=== PATIENT | male | born 1955 | race Caucasian/White ===

== ENCOUNTER 2017-11-13 12:58 | Day surgery (SDC) | payer BC, OTHER ==
[2017-11-12 09:36] VITALS: BMI 30.8
[~2017-11-13 12:58] MED LIST: LACTATED RINGERS 1,000 ML IV SCH; LIDOCAINE 1% 20 ML VIAL (10MG/ML) FOR IV START INTRADERMA PRN
[2017-11-13 13:32] VITALS: TEMP 97.2
[2017-11-13 13:34] LABS: Glucose,Whole Blood 165 mg/dL (75-99)
[2017-11-13] MEDS ORDERED: LIDOCAINE 1% INJ 10MG/ML (20 ML MDV) ONE (15:49)
[2017-11-13] MEDS ORDERED: PROPOFOL 10 MG/ML 20 ML VIAL IV ONE (15:49)
--- NOTE | 2017-11-13 16:23 | P.PCN ---
Date of Procedure: 11/13/17 Procedure(s) Performed: Procedure: Total colonoscopy. Preoperative diagnosis: Screening for neoplasia. Postoperative diagnosis: Exam within normal limits. Preparation: HalfLytely prep. Sedation: Was provided by anesthesia. Brief clinical history: The patient is a 62-year-old male who is referred for this evaluation for screening for neoplasia age being his risk factor. He has no abdominal complaints, bleeding or anemia. No family history of colon cancer. This would be his first colonoscopy. Procedure: With the patient on his left lateral decubitus position and after informed consent and adequate sedation the perianal area was inspected and it did not show any fissures or fistulas. There were no masses felt on digital rectal examination. The Olympus CFQ 160L video colonoscope was then inserted in the rectum in the usual fashion and advanced to the cecum. Unfortunately, the preparation was less than ideal and I spent some time washing and suctioning thick fecal fluid and stool debris. The mucosa appeared healthy. No obvious polyps or tumors were seen or any obvious diverticular disease or other pathology. I retroflexed the endoscope in the rectum before the endoscope was withdrawn. The patient tolerated the procedure well. Plan: The patient was reassured. In light of his less than ideal preparation, I am recommending repeat exam in around 4-5 years before going with a 10-year schedule. He'll follow up with you as planned.
[2017-11-13 16:56] VITALS: BP 100/66; PULSE 66; RESP 18
== END 2017-11-13 17:08 | disposition home or self-care (01) ==
LOC: ORWHC2ENDO 12:58
DX: Z12.11 Encounter for screening for malignant neoplasm of colon (principal); I10 Essential (primary) hypertension; E11.9 Type 2 diabetes mellitus without complications; Z88.0 Allergy status to penicillin; Z79.82 Long term (current) use of aspirin; Z79.899 Other long term (current) drug therapy
CPT/HCPCS: 45378; J2001; J2704

== ENCOUNTER 2020-10-23 09:00 | Day surgery (SDC) | payer BC ==
[2020-10-19 16:31] VITALS: BMI 28.7
[~2020-10-23 09:00] MED LIST changes: +ACETAMINOPHEN TAB 500 MG TAB PO PRN; +DEXAMETHASONE SOD PHOSPHATE 4 MG/ML 1 ML VIAL IV ONE; +HEPARIN SODIUM,PORCINE 5,000 UNIT/ML 1 ML VIAL SQ PRN; -LIDOCAINE 1% 20 ML VIAL (10MG/ML) FOR IV START INTRADERMA PRN; +ONDANSETRON 4 MG/2 ML VIAL IVP ONE; +SCOPOLAMINE 1.5MG/72HR PATCH TRANSDERM ONE
[2020-10-23 09:52] LABS: Glucose,Whole Blood 174 mg/dL (75-99)
[2020-10-23 09:54] VITALS: RESP 16; TEMP 98.3
[2020-10-23] MEDS ORDERED: MIDAZOLAM 2 MG/2 ML VIAL IV ONE (10:11)
--- NOTE | 2020-10-23 10:22 | P.ANPRN ---
Procedure Note - Anesthesia - Nerve Block Performed Right Transversus Abdominis Single Time Out Performed: Yes (1010) Date of Procedure: 10/23/20 Procedure Start Time: : Procedure Stop Time: Location of Patient: PreOp Indication: Acute Post-Operative Pain, Analgesia, Requested by Surgeon Specifically requested for management of pain by DrTerence: Frank Zazueta Sedation Type: Sedate with meaningful contact maintained Preparation: Sterile Prep Position: Supine Catheter: None Needle Types: Pajunk Needle Gauge: 20 Ultrasound used to visualize needle placement: Yes Ultrasound used to observe medication spread: Yes Injectate: 0.5% Ropivacaine (see comment for volume) (20 mL) Blood Aspirated: No Pain Paresthesia on Injection Noted: No Resistance on Injection: Normal Image Stored and Saved: Yes Events: Uneventful and Well Tolerated
--- NOTE | 2020-10-23 11:30 | P.GSHP ---
History of Present Illness H&P Date: 10/23/20 Chief Complaint: Left Inguinal hernia This is a 65-year-old male who presents today for laparoscopic robotic-assisted repair of left inguinal hernia. Patient complains of left groin pain and has a mass. Past Medical History Past Medical History: Diabetes Mellitus, Hypertension, Musculoskeletal Disorder Additional Past Medical History / Comment(s): Lt knee pain. Rt inguinal hernia. History of Any Multi-Drug Resistant Organisms: None Reported Past Surgical History: Heart Catheterization Additional Past Surgical History / Comment(s): Colonoscopy Past Anesthesia/Blood Transfusion Reactions: No Reported Reaction Additional Past Anesthesia/Blood Transfusion Reaction / Comment(s): NO PRIOR SX HX Smoking Status: Never smoker - Past Family History Mother Family Medical History: No Reported History Medications and Allergies Home Medications Medication Instructions Recorded Confirmed Type Aspirin 81 mg PO DAILY 05/25/15 10/19/20 History amLODIPine [Norvasc] 10 mg PO DAILY 05/25/15 10/23/20 History Isosorbide Mononitrate [Isosorbide 30 mg PO DAILY 11/12/17 10/23/20 History Mononitrate ER] Losartan Potassium 100 mg PO DAILY 11/12/17 10/23/20 History sitaGLIPtin PHOS/metFORMIN HCL 1 each PO BID 11/12/17 10/23/20 History [Janumet 50-1,000 mg Tablet] Metoprolol Succinate (ER) [Toprol 25 mg PO DAILY 10/19/20 10/23/20 History Xl] Allergies Allergy/AdvReac Type Severity Reaction Status Date / Time Penicillins Allergy Unknown Verified 10/19/20 16:01 Childhood Surgical - Exam Vital Signs Temp Pulse Resp BP Pulse Ox 98.3 F 85 16 135/78 98 10/23/20 09:34 10/23/20 09:34 10/23/20 09:34 10/23/20 09:34 10/23/20 09:34 - General well developed, well nourished, no distress - Eyes PERRL - ENT normal pinna - Neck no masses - Respiratory normal expansion - Cardiovascular Rhythm: regular - Abdomen Abdomen: soft, non tender Results - Labs Abnormal Lab Results - Last 24 Hours (Table) 10/23/20 Range/Units 09:50 POC Glucose (mg/dL) 174 H (75-99) mg/dL Assessment and Plan Assessment: Left inguinal hernia. We'll perform laparoscopic robotic system repair.
[2020-10-23] MEDS ORDERED: MIDAZOLAM 2 MG/2 ML VIAL ONE (11:32)
[2020-10-23] MEDS ORDERED: NEOSTIGMINE 1 MG/ML 10 ML VIAL ONE (11:32)
[2020-10-23] MEDS ORDERED: ROPIVACAINE 5 MG/ML 30 ML VIAL ONE (11:32)
[2020-10-23] MEDS ORDERED: SUCCINYLCHOLINE CHLORIDE 100 MG/5 ML SYR IV ONE (11:32)
[2020-10-23] MEDS ORDERED: PHENYLEPHRINE-0.9% NACL SYG 1,000 MCG/10 ML SYRINGE ONE (11:32)
[2020-10-23] MEDS ORDERED: LIDOCAINE 1% INJ 10MG/ML (20 ML MDV) ONE (11:32)
[2020-10-23] MEDS ORDERED: PROPOFOL 10 MG/ML 20 ML VIAL IV ONE (11:32)
[2020-10-23] MEDS ORDERED: GLYCOPYRROLATE 0.2 MG/ML 2 ML VIAL ONE (11:32)
[2020-10-23] MEDS ORDERED: ROCURONIUM 10 MG/ML (5 ML VIAL) IV ONE (11:32)
[2020-10-23] MEDS ORDERED: fentaNYL (PF) 50 MCG/ML 2 ML AMP ONE (11:32)
[2020-10-23] MEDS ORDERED: KETAMINE 10 MG/ML 20 ML VIAL ONE (11:32)
[2020-10-23] MEDS ORDERED: BUPIVACAINE (PF) 0.25% 30 ML VIAL SQ ONE (11:45)
[2020-10-23] MEDS ORDERED: LACTATED RINGERS 1,000 ML IV ONE (12:26)
--- NOTE | 2020-10-23 12:36 | P.OP ---
Date of Procedure: 10/23/20 Preoperative Diagnosis: Right inguinal hernia Postoperative Diagnosis: Bilateral inguinal hernia Procedure(s) Performed: Laparoscopic robotic-assisted repair of bilateral inguinal hernia Anesthesia: SAGE Surgeon: Frank Zazueta Pathology: none sent Condition: stable Disposition: PACU Description of Procedure: The patient's placed on the operating table in the supine position. The patient received general anesthesia. The patient's abdomen was prepped and draped in usual sterile fashion. The skin was anesthetized 1% local Xylocaine at the incision sites. Using an 11 blade a skin incision was made at the umbilicus. The fascia was grasped with a Windsor and then the peritoneal cavity was entered with the Veress needle. Position of the Veress needle was confirmed with a positive drop test. After adequate insufflation a 5 mm trocar was placed into the peritoneal cavity. The Laparoscope was placed the peritoneal cavity. And a robotic 8 mm trocar was placed in the right lateral position and then another 8 mm robotic trochars placed in the left lateral position. The original 5 mm trocar was exchanged for a 12 mm trocar. The patient was placed in reverse Trendelenburg and then the patient was docked to the robot. Next the peritoneum over top of the right inguinal hernia was incised and then using blunt and sharp dissection and electrocautery the hernia sac was dissected free from the floor of the inguinal canal. The hernia sac was completely reduced into the peritoneal cavity. And then using the Pro manager intel mesh the hernia was repaired. The peritoneum was then sutured with 20V lock suture. Next the peritoneum over top of the left inguinal hernia was incised and then using blunt and sharp dissection and electrocautery the hernia sac was dissected free from the floor of the inguinal canal. The hernia sac was completely reduced into the peritoneal cavity. And then using the Pro manager intel mesh the hernia was repaired. The peritoneum was then sutured with 20V lock suture. The patient was then undocked the robot. The needle was withdrawn from the peritoneal cavity. The umbilical trocar site was closed with 0 Ethibond suture. The skin was closed interrupted 3-0 Monocryl suture. Dermabond dressing was applied. Patient was sent to recovery in stable condition.
[2020-10-23] MEDS ORDERED: HYDROmorphone 0.5 MG/0.5 ML SYRINGE IVP ONE (13:20)
[2020-10-23] MEDS ORDERED: KETOROLAC 15 MG/ML 1 ML VIAL IVP ONE (13:24)
[2020-10-23 15:27] VITALS: BP 136/75; PULSE 78
[2020-10-23] MEDS ORDERED: ONDANSETRON ODT 4 MG TAB PO ONE (16:08)
== END 2020-10-23 16:04 | disposition home or self-care (01) ==
LOC: OR 09:00
PROVIDERS: ATTEND Surgery
DX: K40.20 Bilateral inguinal hernia, without obstruction or gangrene, not specified as recurrent (principal); I10 Essential (primary) hypertension; E11.9 Type 2 diabetes mellitus without complications; Z88.0 Allergy status to penicillin; Z79.82 Long term (current) use of aspirin; Z79.84 Long term (current) use of oral hypoglycemic drugs; Z79.899 Other long term (current) drug therapy; Z98.890 Other specified postprocedural states
CPT/HCPCS: 49650; 64486; C1781 ×2; J2250; J1644; J1100; J2710; J0690; J2405; J2001; J3010; J2795; J1885; J2370; J0330; J2704; J1170; 64488

== ENCOUNTER → 2021-06-18 | Outpatient (CLI) | payer BC ==
[2021-06-18 11:49] LABS: HCT 40.2 % (39.0-53.0); HGB 13.5 gm/dL (13.0-17.5); MCH 29.6 pg (25.0-35.0); MCHC 33.7 g/dL (31.0-37.0); MCV 87.9 fL (80.0-100.0); RBC 4.57 m/uL (4.30-5.90); RDW 13.9 % (11.5-15.5)
[2021-06-18 12:13] LABS: INR 1.2 (<1.2); Partial Thromboplastin Time 23.5 sec (22.0-30.0); Prothrombin Time 12.7 sec (9.0-12.0)
[2021-06-18 12:29] LABS: ALT 34 U/L (4-49); AST 43 U/L (17-59); African American GFR (CKD) >90 (>60 ml/min/1.73 sqM); Albumin 3.9 g/dL (3.5-5.0); Alkaline Phosphatase 161 U/L (38-126); Anion Gap 11 mmol/L; Blood Urea Nitrogen 14 mg/dL (9-20); Calcium 9.6 mg/dL (8.4-10.2); Carbon Dioxide 21 mmol/L (22-30); Chloride 103 mmol/L (98-107); Glucose 187 mg/dL (74-99); Non-African American GFR(CKD) >90 (>60 ml/min/1.73 sqM); Sodium 135 mmol/L (137-145); Total Bilirubin 2.3 mg/dL (0.2-1.3); Total Protein 6.7 g/dL (6.3-8.2)
[2021-06-18 12:38] LABS: Appearance,Urine Cloudy (Clear); Bacteria,Urine Few /hpf; Bilirubin,Urine Negative (Negative); Blood,Urine Negative (Negative); Color,Urine Yellow; Glucose,Urine (UA) Negative (Negative); Ketones,Urine Negative (Negative); Leukocyte Esterase,Urine Large (Negative); Mucus,Urine Rare /hpf; Nitrite,Urine Positive (Negative); Protein,Urine Trace (Negative); RBC,Urine 2 /hpf (0-5); Specific Gravity,Urine 1.019 (1.001-1.035); Squamous Epithelial Cell,Urine <1 /hpf (0-4); WBC,Urine 50 /hpf (0-5)
[2021-06-18 13:29] LABS: Platelet Count 62 k/uL (150-450)
== END | disposition home or self-care (01) ==
LOC: LABPAT 09:49
PROVIDERS: ATTEND Orthopaedic Surgery Sports Medicine
DX: Z01.812 Encounter for preprocedural laboratory examination (principal)
CPT/HCPCS: 36415; 80053; 81001; 85027; 85610; 85730; 87070

== ENCOUNTER → 2022-04-26 | Outpatient (CLI) | payer BC ==
[2022-04-26 08:48] LABS: INR 1.3 (<1.2); Partial Thromboplastin Time 25.4 sec (22.0-30.0); Prothrombin Time 13.2 sec (9.0-12.0)
[2022-04-26 10:51] LABS: African American GFR (CKD) 103.5 (60.0-200.0); Albumin 4.3 g/dL (3.8-4.9); Albumin/Globulin Ratio 1.72 (1.60-3.17); Anion Gap 14.7 mmol/L (10.00-18.00); BUN/Creat Ratio 15.11 Ratio (12.00-20.00); Blood Urea Nitrogen 13.6 mg/dL (9.0-27.0); Calcium 9.9 mg/dL (8.7-10.3); Carbon Dioxide 21.3 mmol/L (20.0-27.5); Globulin 2.5 g/dL (1.6-3.3); Non-African American GFR(CKD) 89.3 (60.0-200.0); Potassium 4.2 mmol/L (3.5-5.5); Total Bilirubin 0.9 mg/dL (0.30-1.20); Total Protein 6.8 g/dL (6.2-8.2)
[2022-04-26 11:35] LABS: HCT 38.5 % (39.6-50.0); HGB 12.8 g/dL (13.0-17.0); MCHC 33.2 g/dL (32.0-37.0); MCV 87.3 fL (80.0-97.0); Mean Platelet Volume 11.5 fL (9.5-12.2); NRBC Per 100 WBC 0 /100 WBCS (0.0-0.0); Platelet Count 63 X 10*3/uL (140-440); RBC 4.41 X 10*6/uL (4.40-5.60); RDW 15.2 % (11.5-14.5); WBC 2.92 X 10*3/uL (4.50-10.00)
[2022-04-26 17:02] LABS: Appearance,Urine Clear (Clear); Bilirubin,Urine Negative (Negative); Blood,Urine Trace (Negative); Color,Urine Yellow (Yellow); Ketones,Urine Negative (Negative); Nitrite,Urine Positive (Negative); Specific Gravity,Urine 1.014 (1.001-1.030)
[2022-04-26 17:08] LABS: Bacteria,Urine 3+ /HPF (None Seen)
== END | disposition home or self-care (01) ==
LOC: LABWHC1 06:59
PROVIDERS: ATTEND Orthopaedic Surgery Sports Medicine
DX: Z01.818 Encounter for other preprocedural examination (principal)
CPT/HCPCS: 36415; 80053; 81001; 85027; 85610; 85730; 87070

== ENCOUNTER → 2022-05-14 | Outpatient (CLI) | payer BC | END | disposition home or self-care (01) | LOC: LABPAT 07:35 | PROVIDERS: ATTEND Orthopaedic Surgery Sports Medicine | DX: Z53.9 Procedure and treatment not carried out, unspecified reason (principal) ==

== ENCOUNTER 2022-05-16 06:24 | Day surgery (SDC) | payer BC ==
[~2022-05-16 06:24] MED LIST changes: +GABAPENTIN 300 MG CAP PO PRN; -HEPARIN SODIUM,PORCINE 5,000 UNIT/ML 1 ML VIAL SQ PRN; -LACTATED RINGERS 1,000 ML IV SCH; +LIDOCAINE 1% (10MG/ML) FOR IV START INTRADERMA PRN; +MELOXICAM 7.5 MG TAB PO PRN; +MIDAZOLAM 2 MG/2 ML VIAL IV PRN; +ONDANSETRON 4 MG/2 ML VIAL IVP PRN; -SCOPOLAMINE 1.5MG/72HR PATCH TRANSDERM ONE; +TRANEXAMIC ACID IN NACL,ISO-OS 1,000 MG in SALINE 1 100ML.BAG IVPB PRN
[2022-05-16 07:22] LABS: Glucose,Whole Blood 124 mg/dL (70-110)
[2022-05-16] MEDS ORDERED: LACTATED RINGERS 1,000 ML IV ONE ×2 (07:29→09:41)
[2022-05-16 07:34] LABS: Basophils % (A) 1 %; Eosinophils # (A) 0.1 k/uL (0-0.7); Eosinophils % (A) 2 %; HGB 12.6 gm/dL (13.0-17.5); Lymphocytes # (A) 0.5 k/uL (1.0-4.8); Lymphocytes % (A) 15 %; MCH 30.2 pg (25.0-35.0); MCV 88.8 fL (80.0-100.0); Mean Platelet Volume 8.8; Monocytes # (A) 0.2 k/uL (0-1.0); Monocytes % (A) 5 %; Neutrophils # (A) 2.3 k/uL (1.3-7.7); Neutrophils % (A) 75 %; RBC 4.16 m/uL (4.30-5.90); RDW 15.4 % (11.5-15.5); WBC 3.1 k/uL (3.8-10.6)
[2022-05-16] MEDS ORDERED: KETAMINE 10 MG/ML 20 ML VIAL ONE (07:58)
[2022-05-16] MEDS ORDERED: ePHEDrine 50 MG/ML 1 ML VIAL ONE (07:58)
[2022-05-16] MEDS ORDERED: HYDROmorphone (PF) 1 MG/ML ONE (07:58)
[2022-05-16] MEDS ORDERED: LIDOCAINE 2% INJ 20 MG/ML (2 ML VIAL) ONE (07:58)
[2022-05-16] MEDS ORDERED: SUCCINYLCHOLINE CHLORIDE 200 MG/10 ML VIAL IV ONE (07:58)
[2022-05-16] MEDS ORDERED: fentaNYL (PF) 50 MCG/ML 2 ML AMP ONE (07:58)
[2022-05-16] MEDS ORDERED: ACETAMINOPHEN IV (For NPO) 1,000 MG/100 ML VIAL ONE (07:58)
[2022-05-16] MEDS ORDERED: TRANEXAMIC ACID IN NACL,ISO-OS 1,000 MG/100 ML BAG ONE (07:58)
[2022-05-16] MEDS ORDERED: PROPOFOL 10 MG/ML 20 ML VIAL IV ONE (07:58)
[2022-05-16] MEDS ORDERED: MIDAZOLAM 2 MG/2 ML VIAL ONE (07:58)
[2022-05-16] MEDS ORDERED: ROPIVACAINE 5 MG/ML 30 ML VIAL MISCELLANE ONE (08:03)
[2022-05-16 08:04] LABS: RBC Morphology Normal
[2022-05-16 08:05] LABS: Platelet Count 61 k/uL (150-450)
[2022-05-16] MEDS ORDERED: ceFAZolin 3,000 MG in SODIUM CHLORIDE 0.9% IRRIGATIO 3,000 ML IRRIGATION ONE (08:34)
[2022-05-16] MEDS ORDERED: ONDANSETRON 4 MG/2 ML VIAL IVP PRN (10:06)
[2022-05-16] MEDS ORDERED: NA PHOS,M-B/NA PHOS,DI-BA 133 ML ENEMA RECTAL PRN (10:06)
[2022-05-16] MEDS ORDERED: bisacodyL 10 MG SUPP RECTAL PRN (10:06)
[2022-05-16] MEDS ORDERED: hydrOXYzine pamoate 25 MG CAP PO PRN (10:06)
[2022-05-16] MEDS ORDERED: HYDROmorphone 0.5 MG/0.5 ML SYRINGE IVP PRN ×3 (10:06)
[2022-05-16] MEDS ORDERED: MAGNESIUM HYDROXIDE 2,400 MG/10 ML CUP PO PRN (10:06)
[2022-05-16] MEDS ORDERED: NALOXONE 0.4 MG/ML 1 ML VIAL IV PRN (10:06)
[2022-05-16] MEDS ORDERED: TEMAZEPAM 15 MG CAP PO PRN (10:06)
[2022-05-16] MEDS ORDERED: HYDROcodone/APAP 5-325MG 1 EACH TAB PO PRN (10:06)
[2022-05-16] MEDS: HYDROmorphone 0.5 MG/0.5 ML SYRINGE IVP PRN ×2 (10:31→10:46)
[2022-05-16] MEDS ORDERED: diphenhydrAMINE 50 MG/ML 1 ML VIAL IVP ONE (11:00)
--- NOTE | 2022-05-16 11:30 | OP ---
OPERATIVE REPORT PREOPERATIVE DIAGNOSIS: Left knee osteoarthrosis. POSTOPERATIVE DIAGNOSIS: Left knee osteoarthrosis. PROCEDURE PERFORMED: Left total knee arthroplasty. ANESTHESIA: General endotracheal. ESTIMATED BLOOD LOSS: 100 mL. TOURNIQUET TIME: 54 minutes at 250 mmHg. COMPLICATIONS: None apparent. DRAINS: None. DISPOSITION: Postanesthesia care unit. INDICATIONS FOR PROCEDURE: Steve is a very pleasant 66-year-old male with longstanding history of left knee pain. History and physical examination are consistent with advanced left knee osteoarthrosis. He has been through significant nonoperative management up to this point. Further treatment options were discussed, and he decided to go forward with left total knee arthroplasty. The risks of procedure were discussed with him in detail. These risks include, but are not limited to risk of infection, nerve damage, bleeding, pain, and a small risk of deep vein thrombosis which could lead to fatal pulmonary embolism. There is also risk of loosening of the implant, which could require revision operation. 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 He has been worked up extensively by Hematology preoperatively. We did take a preoperative platelet level, it was 61,000. This was within the range that Hematology felt it was safe to proceed with this procedure. We did have platelets on reserve in case needed during the surgery. Steve understands the increased risk of bleeding with regard to his underlying liver disorder. All of his questions were answered to his satisfaction. An appropriate informed consent was obtained. DESCRIPTION OF PROCEDURE: The patient was identified in the preoperative holding area. Surgical site was marked by both the patient and myself. He was given 2 g of Ancef IV for prophylactic purposes. He was then transported to the operative suite and placed supine on the operating room table. A general anesthetic was then administered and dosed per the Anesthesia Department without apparent complication. Examination under anesthesia was then performed. He was 2 to 3 degrees shy of full extension. He had 100 degrees of flexion, and the medial collateral ligament, lateral collateral ligament, and posterior cruciate ligaments were stable. A tourniquet was then placed high on the left upper thigh and well padded in preparation for surgery. The patient's left lower extremity was then prepped and draped in usual sterile fashion. Standard surgical pause was undertaken to ensure that we were operating the correct site and that appropriate preoperative antibiotics had been given. All staff in the room were in agreement, and we proceeded. The outlines of the patella were marked with a surgical pen. A planned 12 cm vertical incision centered over the patella was marked with a surgical pen. The leg was then exsanguinated with an Esmarch dressing. The knee was then flexed, and the tourniquet was inflated to 250 mmHg. The total tourniquet time for the procedure was 54 minutes. The incision was then made with a 10-blade scalpel. Dissection was carried down sharply overlying the fascia. Great care was taken to minimize the skin flaps. The knee was then exposed using a standard medial parapatellar approach. A small cuff of quadriceps tendon was then left for suturing. He was in a bit of varus preoperatively. A standard medial release was then made. The superficial medial collateral ligament was dissected off the bone around to the posterior aspect of the proximal tibia. The medial meniscus was then excised as well. The lateral meniscus was also released anteriorly. The leg was then externally rotated. The patella was everted. The knee was flexed. The retractors were then placed to protect the collateral ligaments. I then proceeded to remove the infrapatellar fat pad. This was excised sharply tangentially with fibers of the patellar tendon. I then proceeded to remove the peripheral osteophytes. This was done with a rongeur. I then proceeded with the distal femoral resection. He did have near full extension. A planned 9 mm resection was then done. The femoral canal was then entered in the midline of the femur approximately 10 mm anterior to the origin of the posterior cruciate ligament. The ranjit was then advanced down to the center of the femur and placed intramedullary. Based on the preoperative radiographs, the angle between the anatomic and mechanical axis of the femur was approximately 4 to 5 degrees. The valgus angle of the distal femoral cutting guide was then set at 4 degrees for the left knee. The distal femoral cutting guide was then advanced over the intramedullary ranjit. This was seated firmly against the femur. Then, as mentioned, I planned to take 9 mm off the distal femur. The cutting block was then secured onto the femur with pins. The jig was then removed. The distal femoral cuts were made through the slot of the block. The pins were then removed. The distal femoral cutting block was removed. The accuracy of the distal femoral cuts was checked with 2 flat bars. I then proceeded with femoral sizing. Posterior referencing sizing guide was held firmly against the resected distal surface of the femur. The posterior condyles were resting on the posterior plane of the guide. The sizing stylus was then placed onto the anterior femur. The size was measured as a size 8. I then assessed for femoral rotation. I planned for 3 degrees of external rotation. The 3 degrees of external rotation was placed onto the jig. These holes were then marked. I then confirmed the rotation by 3 separate methods. This was done using the epicondylar axis as well as Richmond's line and posterior referencing. It was deemed that the external rotation was proper. I then went forward and placed the femoral cutting block. This was placed over the previously-placed pin holes. The Luke wing was then placed on the anterior slots to ensure that we would not notch the anterior femur with the anterior femoral cut. I then proceeded with the anterior femoral cut. This was flush with the anterior cortex of the femur. Posterior cuts were then made followed by the anterior chamfer cut and then the posterior chamfer cut. The cutting block was then removed. Throughout the resection, the collateral ligaments were protected with retractors. I then placed a trial size 8 femur. It fit very nice medial and lateral and fit flush with the distal end of the femur. The drill holes were then made. I then proceeded with the tibial cut. I planned for a cruciate-retaining knee. The guide was placed and set for varus and valgus and for slope. The height was set for approximately 2 mm resection from the medial tibial plateau, which was the lower side. I was happy with the alignment and the amount of resection. The cutting block was then pinned to the proximal tibia. The alignment ranjit was removed, and the proximal tibia was resected with the reciprocating saw. Again, this was done with retractors protecting the collateral ligaments as well as the posterior cruciate ligament. I then proceeded to evaluate the flexion and extension gaps. A 10 mm block was then placed. The flexion and extension gaps were equal. I then proceeded with resection of the posterior osteophytes. He had very minimal posterior osteophytes. This was done using a curved osteotome. This resected the posterior osteophytes, and posterior capsular stripping was done off the posterior aspect of the femur at this time. The osteophytes were then removed. I then proceeded with resection of the patella. The thickness of the patella was measured using the caliper. The thickness was 24 mm. The thickness of the anticipated patellar dome was then taken into account. The resection was then performed and confirmed to be equal in 4 quadrants using a caliper. Approximately 14 mm of bone remained after resection. A 32 x 8.5 mm standard patellar trial was then placed. The holes were drilled, and the trial was then placed. I then proceeded with sizing the tibial plate. A size F tibial plate fit very nicely. I then placed the trial femur, the tibial tray, and the patellar button. A 10 mm trial tibial insert was also placed. The components fit very nicely. He had full extension and flexion. The extension and flexion gaps were equal and stable to both varus and valgus stress. The patella tracked appropriately. Tibial tray rotation was then marked with a Bovie. This was externally rotated properly. I then proceeded with tibial preparation. I first drilled the femoral holes and removed the femoral component. The tibial tray was then set for proper external rotation as well as medial and lateral placement onto the tibia. It was then pinned into place. I then proceeded with punching the keel. I then decided to proceed with cementing of all of our components. The knee was thoroughly irrigated with sterile saline solution via pulsed lavage. The lateral genicular artery was identified and cauterized. All blood was removed from the bone of the tibia, femur, and patella with pulsed lavage. I then proceeded with cementing. Two packs of antibiotic bone cement prepared on the back table by the surgical orderly. I then proceeded with cementing of the tibia first. The cement was impacted in the keel as well as deeply seated into the bone. A second coat of cement was then placed. The tibia was then impacted into place. Excess cement was removed with Sunbury's and Joker's. I then proceeded with cementing of the femoral component. The femoral component was also cemented using standard technique. Excess cement was removed. A 10 mm trial insert was then placed into the knee. It was brought into full extension with a constant axial load placed until the cement had hardened. The patellar component was then cemented. This was held firmly with a compressive device until the cement had dried. When the cement had dried, the knee was taken out of extension. All excess cement was removed from around the prosthesis. I then trialed the knee with a 10 mm insert. The flexion and extension gaps were appropriate. I then trialed with a 12 mm insert. The flexion and extension gaps felt much better. The knee was stable with a 12 mm insert. It came into full extension. I decided to go forward with a 12 mm Medial Congruent cross-linked cruciate-retaining tibial insert. Polyethylene was then placed onto the tibial tray and locked into place. The knee was then reduced. The knee was again further irrigated with sterile saline solution with antibiotic added. The tourniquet was then deflated. Total tourniquet time for the procedure was 54 minutes at 250 mmHg. Final components were Torey Persona size 8 cruciate-retaining femoral component, a size F tibial tray, a 12 mm Medial Congruent cruciate-retaining polyethylene insert, and a 32 x 8.5 mm patella. I then proceeded with closure. Again, the knee was thoroughly irrigated. The quadriceps tendon and the medial retinaculum were reapproximated with #2 Ethibond suture. The extensor mechanism was then closed with a running #2 Quill suture. Subcutaneous tissues were closed with 2-0 Vicryl interrupted suture. The skin was closed with a running 3-0 Quill suture. Dermabond was applied to the incision. Sterile compressive dressing was then applied. All sponge and needle counts were deemed correct prior to closure. The patient tolerated the procedure without apparent complication. He was transferred to recovery room in stable condition. MMODL / IJN: [id number] /
[2022-05-16 12:03] LABS: Glucose,Whole Blood 206 mg/dL (70-110)
--- NOTE | 2022-05-16 12:05 | XR ---
EXAMINATION TYPE: TEMPORARY DATE OF EXAM: 05/16/2022 CLINICAL HISTORY: Left knee pain and arthritis status post total knee replacement. TECHNIQUE: Portable AP and crosstable lateral views of the left knee are obtained immediately postop eratively. COMPARISON: None FINDINGS: Metallic hardware from total left knee arthroplasty is seen and appears satisfactory in al ignment and position. There is evidence of recent surgery with diffuse subcutaneous gas and soft ti ssue swelling noted. IMPRESSION: METALLIC HARDWARE FROM TOTAL LEFT KNEE ARTHROPLASTY IS SATISFACTORY IN ALIGNMENT.
[2022-05-16] MEDS: LACTATED RINGERS 1,000 ML IV SCH ×3 (12:30→21:50)
[2022-05-16 17:07] LABS: Glucose,Whole Blood 235 mg/dL (70-110)
[2022-05-16] MEDS ORDERED: SENNOSIDES-DOCUSATE SODIUM 1 EACH TAB PO SCH (21:00)
[2022-05-16 21:10] LABS: Glucose,Whole Blood 253 mg/dL (70-110)
[2022-05-16] MEDS: HYDROcodone/APAP 7.5-325MG 1 EACH TAB PO PRN (21:49)
[2022-05-17] MEDS: LACTATED RINGERS 1,000 ML IV SCH ×2 (06:12→12:32)
[2022-05-17 06:58] LABS: Glucose,Whole Blood 150 mg/dL (70-110)
--- NOTE | 2022-05-17 07:47 | P.CONS ---
History of Present Illness - Reason for Consult Consult date: 05/17/22 Medical management Requesting physician: Behzad Merchant - Chief Complaint Knee arthroplasty - History of Present Illness This is a history and physical on a 66-year-old white male with history of alcohol use who comes in with knee arthroplasty. He is seen postop day #1. Underlying history of hypertension and diabetes. Pain is well controlled. Inhalation we'll begin today. No fever or chills. No significant nausea, vomiting or diarrhea Review of Systems Constitutional: Denies chills, Denies fever Eyes: denies blurred vision, denies pain Ears, nose, mouth and throat: Denies headache, Denies sore throat Cardiovascular: Denies chest pain, Denies shortness of breath Respiratory: Denies cough Gastrointestinal: Denies abdominal pain, Denies diarrhea, Denies nausea, Denies vomiting Past Medical History Past Medical History: Diabetes Mellitus, Hypertension, Musculoskeletal Disorder Additional Past Medical History / Comment(s): Lt knee pain. Rt inguinal hernia. History of Any Multi-Drug Resistant Organisms: None Reported Past Surgical History: Heart Catheterization, Hernia Repair Additional Past Surgical History / Comment(s): Colonoscopy Past Anesthesia/Blood Transfusion Reactions: No Reported Reaction Additional Past Anesthesia/Blood Transfusion Reaction / Comm: NO PRIOR SX HX Past Psychological History: No Psychological Hx Reported Smoking Status: Never smoker Past Alcohol Use History: Heavy Additional Past Alcohol Use History / Comment(s): pt has been sober of etoh for 10 months. used to drink more than 14 drinks per week. Past Drug Use History: None Reported - Past Family History Mother Family Medical History: No Reported History Medications and Allergies Home Medications Medication Instructions Recorded Confirmed Type Aspirin 81 mg PO DAILY 05/25/15 05/16/22 History amLODIPine [Norvasc] 10 mg PO DAILY 05/25/15 05/16/22 History Isosorbide Mononitrate [Isosorbide 30 mg PO DAILY 11/12/17 05/16/22 History Mononitrate ER] Losartan Potassium 100 mg PO DAILY 11/12/17 05/16/22 History sitaGLIPtin PHOS/metFORMIN HCL 1 each PO BID 11/12/17 05/16/22 History [Janumet 50-1,000 mg Tablet] Metoprolol Succinate (ER) [Toprol 25 mg PO DAILY 10/19/20 05/16/22 History Xl] Zolpidem Tartrate [Ambien] 5 mg PO HS PRN 05/09/22 05/16/22 History Aspirin [Adult Low Dose Aspirin EC] 81 mg PO DAILY #1 tab 05/16/22 Rx HYDROcodone/APAP 7.5-325MG [[place] 1 - 2 tab PO Q6HR PRN #32 tab 05/16/22 Rx 7.5-325] Ondansetron Odt [Zofran Odt] 4 mg PO Q8HR PRN #14 tab 05/16/22 Rx Sennosides-Docusate Sodium 1 tab PO BID #60 tablet 05/16/22 Rx [Senokot-S] Allergies Allergy/AdvReac Type Severity Reaction Status Date / Time Penicillins Allergy Unknown Verified 05/16/22 06:48 Childhood Physical Exam Vitals: Vital Signs Temp Pulse Resp BP Pulse Ox 05/17/22 01:06 98.3 F 71 18 120/54 98 05/16/22 21:06 98.4 F 73 16 117/61 99 05/16/22 14:03 73 121/68 97 05/16/22 13:48 74 119/67 97 05/16/22 13:33 73 123/69 96 05/16/22 13:18 74 124/69 96 05/16/22 13:06 70 17 05/16/22 13:03 75 119/68 97 05/16/22 12:48 81 127/68 97 05/16/22 12:38 97.8 F 80 17 126/70 97 05/16/22 12:33 79 126/70 05/16/22 12:18 83 140/76 05/16/22 12:03 97.8 F 79 120/65 97 05/16/22 11:18 76 16 122/68 97 05/16/22 11:03 75 16 129/70 98 05/16/22 10:48 74 16 123/71 97 05/16/22 10:33 76 16 128/64 97 05/16/22 10:18 78 16 138/71 100 05/16/22 10:03 97.3 F L 74 16 132/65 99 Intake and Output 05/16/22 05/17/22 05/17/22 22:59 06:59 14:59 Intake Total 530 Output Total 9250 9781 Balance -1275 -945 Intake: Intake, IV Titration 50 Amount Tranexamic Acid in NaCl, 50 Iso-Os 1,000 mg In Saline 1 100ml.bag @ 200 mls/hr IVPB ONCE PRN Rx#: [id number] Oral 480 Output: Urine 1275 1475 Other: Voiding Method Urinal # Voids 1 - Constitutional General appearance: no acute distress - EENT Eyes: EOMI - Neck Neck: no lymphadenopathy - Respiratory Respiratory: bilateral: CTA - Cardiovascular Rhythm: regular Heart sounds: normal: S1 Abnormal Heart Sounds: no S3 Gallop - Gastrointestinal General gastrointestinal: soft, no tenderness - Integumentary Integumentary: no cellulitis Results CBC & Chem 7: 05/16/22 07:20 Labs: Abnormal Lab Results - Last 24 Hours (Table) 05/16/22 05/16/22 05/16/22 Range/Units 07:20 12:01 17:06 Plt Count 61 L (150-450) k/uL Lymphocytes # 0.5 L (1.0-4.8) k/uL POC Glucose (mg/dL) 206 H 235 H (70-110) mg/dL 05/16/22 05/17/22 Range/Units 21:07 06:57 Plt Count (150-450) k/uL Lymphocytes # (1.0-4.8) k/uL POC Glucose (mg/dL) 253 H 150 H (70-110) mg/dL Assessment and Plan (1) Knee arthropathy Current Visit: Yes Status: Acute Code(s): M17.10 - UNILATERAL PRIMARY OSTEOARTHRITIS, UNSPECIFIED KNEE SNOMED Code(s): 653038492 (2) Diabetes Current Visit: Yes Status: Acute Code(s): E11.9 - TYPE 2 DIABETES MELLITUS WITHOUT COMPLICATIONS SNOMED Code(s): 77053326 (3) Hypertension Current Visit: Yes Status: Acute Code(s): I10 - ESSENTIAL (PRIMARY) HYPERTENSION SNOMED Code(s): 65577861 (4) Alcohol abuse Current Visit: Yes Status: Acute Code(s): F10.10 - ALCOHOL ABUSE, UNCOMPLICATED SNOMED Code(s): 21681404 Plan: Restart home medications. Place on sliding scale as needed. The patient is actually doing quite well postop. I suspect he will be discharged in next 24 hours. Continue follow-up from medical management. GI and DVT prophylaxis
[2022-05-17] MEDS ORDERED: DEXTROSE 50% SYRINGE 50 ML IVP PRN ×2 (07:48)
[2022-05-17 08:34] VITALS: RESP 17
[2022-05-17] MEDS ORDERED: LOSARTAN 50 MG TAB PO SCH (09:00)
[2022-05-17] MEDS ORDERED: amLODIPine 10 MG TAB PO SCH (09:00)
[2022-05-17] MEDS ORDERED: ASPIRIN 81 MG PO SCH (09:00)
[2022-05-17] MEDS ORDERED: METOPROLOL SUCCINATE (ER) 25 MG TAB.ER.24H PO SCH (09:00)
[2022-05-17] MEDS ORDERED: metFORMIN 500 MG TAB PO SCH (09:00)
[2022-05-17] MEDS ORDERED: LINAGLIPTIN 5 MG TABLET PO SCH (09:00)
[2022-05-17] MEDS ORDERED: ISOSORBIDE MONONITRATE ER 30 MG TAB.ER.24H PO SCH (09:00)
[2022-05-17] MEDS: HYDROcodone/APAP 7.5-325MG 1 EACH TAB PO PRN ×2 (09:09→15:25)
[2022-05-17 09:33] LABS: Basophils # (A) 0.01 X 10*3/uL (0.00-0.10); Basophils % (A) 0.2 %; Eosinophils # (A) 0.03 X 10*3/uL (0.04-0.35); Eosinophils % (A) 0.6 %; HCT 30.7 % (39.6-50.0); HGB 10.4 g/dL (13.0-17.0); Immature Grans, Automated 0.6 %; Immature Platelet Fraction 4.5 % (1.1-6.1); Lymphocytes # (A) 0.58 X 10*3/uL (0.90-5.00); Lymphocytes % (A) 11.3 %; MCH 29.2 pg (27.0-32.0); MCHC 33.9 g/dL (32.0-37.0); MCV 86.2 fL (80.0-97.0); Mean Platelet Volume 10.6 fL (9.5-12.2); Monocytes # (A) 0.31 X 10*3/uL (0.20-1.00); NRBC Per 100 WBC 0 /100 WBCS (0.0-0.0); Neutrophils # (A) 4.19 X 10*3/uL (1.80-7.70); Neutrophils % (A) 81.3 %; Platelet Count 55 X 10*3/uL (140-440); RBC 3.56 X 10*6/uL (4.40-5.60); RDW 14.8 % (11.5-14.5); WBC 5.15 X 10*3/uL (4.50-10.00)
[2022-05-17 12:01] LABS: Glucose,Whole Blood 203 mg/dL (70-110)
--- NOTE | 2022-05-17 13:58 | P.DS ---
Providers Expected date of discharge: 05/17/22 Attending physician: Jamal Burrell Consults: 05/16/22 10:06 Consult Physician Routine Consulting Provider: Rudy Lang Consult Reason/Comments: Medical management Do you want consulting provider notified?: Yes Primary care physician: Rudy Lang [facility] Course: This patient is a 66- year old male who has been followed in the office by Dr. Burrell for left knee osteoarthritis. After discussion, patient elected to undergo a left total knee arthroplasty. Patient was evaluated by Dr. Lang, Dr. Schreiber, Dr. Montanez pre-operatively and cleared for surgery. Patient underwent a left total knee arthroplasty on 05/16/[address] Burrell. Vital signs and labs are stable on post-operative day #1. Patient is examined bedside this morning. He is currently up to the bedside chair. He states the pain in his left knee is manageable. He is comfortable returning home today. He has passed physical therapy to return home. He denies chest pain, shortness of breath, nausea, vomiting. On examination, patient is sitting up in the bedside chair. He is alert and orientated x3. On inspection of the left knee, there is a clean, dry surgical dressing intact with no bleeding or drainage to the dressing. Motor and sensory function intact of the left lower extremity. Dorsalis pedis pulse easily palpable. Calf non-tender. Patient is discharged home with home health care today, pending medical clearance. Please see med rec for accurate list of discharge medications. Patient is instructed to follow-up with Dr. Burrell in the office in ten days. Plan - Discharge Summary Discharge Rx Participant: No New Discharge Prescriptions: New HYDROcodone/APAP 7.5-325MG [[place] 7.5-325] 1 - 2 tab PO Q6HR PRN #32 tab PRN Reason: Pain Sennosides-Docusate Sodium [Senokot-S] 1 tab PO BID #60 tablet Aspirin [Adult Low Dose Aspirin EC] 81 mg PO DAILY #1 tab Ondansetron Odt [Zofran Odt] 4 mg PO Q8HR PRN #14 tab PRN Reason: Nausea Continue amLODIPine [Norvasc] 10 mg PO DAILY Aspirin 81 mg PO DAILY sitaGLIPtin PHOS/metFORMIN HCL [Janumet 50-1,000 mg Tablet] 1 each PO BID Isosorbide Mononitrate [Isosorbide Mononitrate ER] 30 mg PO DAILY Losartan Potassium 100 mg PO DAILY Metoprolol Succinate (ER) [Toprol XL] 25 mg PO DAILY Zolpidem Tartrate [Ambien] 5 mg PO HS PRN PRN Reason: Insomnia Discharge Medication List Aspirin 81 mg PO DAILY 05/25/15 [History] amLODIPine [Norvasc] 10 mg PO DAILY 05/25/15 [History] Isosorbide Mononitrate [Isosorbide Mononitrate ER] 30 mg PO DAILY 11/12/17 [History] Losartan Potassium 100 mg PO DAILY 11/12/17 [History] sitaGLIPtin PHOS/metFORMIN HCL [[place] 50-1,000 mg Tablet] 1 each PO BID 11/12/17 [History] Metoprolol Succinate (ER) [Toprol XL] 25 mg PO DAILY 10/19/20 [History] Zolpidem Tartrate [Ambien] 5 mg PO HS PRN 05/09/22 [History] Aspirin [Adult Low Dose Aspirin EC] 81 mg PO DAILY #1 tab 05/16/22 [Rx] HYDROcodone/APAP 7.5-325MG [[place] 7.5-325] 1 - 2 tab PO Q6HR PRN #32 tab 05/16/22 [Rx] Ondansetron Odt [Zofran Odt] 4 mg PO Q8HR PRN #14 tab 05/16/22 [Rx] Sennosides-Docusate Sodium [Senokot-S] 1 tab PO BID #60 tablet 05/16/22 [Rx] Follow up Appointment(s)/Referral(s): [facility] [NON-STAFF] - As Needed Jamal Burrell MD [STAFF PHYSICIAN] - 05/28/22 8:15 am Activity/Diet/Wound Care/Special Instructions: May bear wt as tolerated w walker. May change dressing and shower 48h post op. Begin PT 2-3 days post op. Discharge Disposition: HOME WITH HOME HEALTH SERVICES
[2022-05-17 14:34] VITALS: BP 145/61; PULSE 66; TEMP 98.2
== END 2022-05-17 16:41 | disposition home health service (06) ==
LOC: OR 06:24 → 4SSUR 10:11 → OR 05-17 16:41
PROVIDERS: ATTEND Orthopaedic Surgery Sports Medicine
DX: M17.12 Unilateral primary osteoarthritis, left knee (principal); I10 Essential (primary) hypertension; E11.8 Type 2 diabetes mellitus with unspecified complications; Z79.82 Long term (current) use of aspirin; Z79.84 Long term (current) use of oral hypoglycemic drugs; Z79.899 Other long term (current) drug therapy; Z88.0 Allergy status to penicillin; Z68.28 Body mass index [BMI] 28.0-28.9, adult
CPT/HCPCS: 27447; 97110; 97163; 86900; 86901; 85025 ×2; 86850; 88300; 73560; C1776; C1713; J2250; J0330; J1200; J1100; J0690 ×2; J2405; J3010; J1170 ×2; J2795; J0131; J2704; J2001; 83036